=== PATIENT | female | born 1990 | race Caucasian/White ===

== ENCOUNTER 2018-10-28 14:09 | Emergency (ER) | payer OTHER ==
[~2018-10-28] VITALS: Ht 157.5 cm; Wt 81.7 kg
[~2018-10-28 14:09] MED LIST: AMITRIPTYLINE H25 M2 PO; ANUSOL-HC25 MG RECTAL; BUTALB-APAP-CA1 EACH PO; CEPHALEXIN 250250 MG PO; COLACE100 MG PO; HYDROCODONE-AP1 EAC6 PO; HYDROXYZINE HCL25 M1 PO; IMITREX 50 MG T50 MG PO; NOHOMEMEDICATIONS; NORCO 5-325 TA1 EACH PO; TOPAMAX50 MG PO; ZOFRAN4 MG PO
[2018-10-28 14:16] VITALS: BP 135/88
[2018-10-28] MEDS ORDERED: BACTRIM DS TAB1 EACH PO (14:27)
[2018-10-28] MEDS ORDERED: DOXYCYCLINE 10100 MG PO (14:37)
== END 2018-10-28 14:39 | disposition home or self-care (01) ==
LOC: M.ERS 14:09
DX: L73.9 Follicular disorder, unspecified (principal); G43.909 Migraine, unspecified, not intractable, without status migrainosus; Z88.1 Allergy status to other antibiotic agents; Z88.2 Allergy status to sulfonamides; Z91.041 Radiographic dye allergy status; Z90.49 Acquired absence of other specified parts of digestive tract

== ENCOUNTER 2019-01-07 10:58 | Emergency (ER) | payer OTHER ==
[~2019-01-07] VITALS: Ht 157.5 cm; Wt 84.9 kg
[~2019-01-07 10:58] MED LIST changes: +BACTRIM DS TAB1 EACH PO; +DOXYCYCLINE 10100 MG PO
[2019-01-07] MEDS ORDERED: IBUPROFEN 800800 M1 PO (11:31)
[2019-01-07] MEDS ORDERED: CARBAMAZEPINE100 M3 PO (11:31)
[2019-01-07] MEDS ORDERED: NORCO 5-325 TA1 EACH PO (11:31)
[2019-01-07] MEDS ORDERED: AMOXICILLIN 50500 MG PO (11:31)
[2019-01-07 11:51] VITALS: BP 153/101
== END 2019-01-07 11:52 | disposition home or self-care (01) ==
LOC: M.ERS 10:58
DX: G50.0 Trigeminal neuralgia (principal); H92.01 Otalgia, right ear; G47.00 Insomnia, unspecified; Z90.49 Acquired absence of other specified parts of digestive tract; G43.909 Migraine, unspecified, not intractable, without status migrainosus; Z88.1 Allergy status to other antibiotic agents; Z88.2 Allergy status to sulfonamides; Z88.8 Allergy status to other drugs, medicaments and biological substances; Z91.041 Radiographic dye allergy status